=== PATIENT | female | born 1950 | race Asian ===

== ENCOUNTER 2016-06-20 07:38 | Outpatient (CLI) | payer OTHER ==
[2016-06-20] MEDS ORDERED: WARF1TAB7 PO (09:06)
[2016-06-20] MEDS ORDERED: TRAM50TA PO (12:19)
[2016-06-20] MEDS ORDERED: HYDR5TAB9 PO (12:19)
== END 2016-06-20 07:45 | disposition short-term general hospital (02) ==
LOC: AMB 07:38
DX: M25.562 Pain in left knee (principal); W18.39XA Other fall on same level, initial encounter; Y92.098 Other place in other non-institutional residence as the place of occurrence of the external cause
CPT/HCPCS: A0425; A0429

== ENCOUNTER 2016-06-20 07:45 | Emergency (ER) | payer OTHER ==
[~2016-06-20] VITALS: Ht 185.4 cm; Wt 124.7 kg
[2016-06-20 07:55] VITALS: BP 157/103; TEMP 97.9
[2016-06-20] MEDS ORDERED: WARF1TAB7 PO (09:06)
[2016-06-20] MEDS ORDERED: TRAM50TA PO (12:19)
[2016-06-20] MEDS ORDERED: HYDR5TAB9 PO (12:19)
== END 2016-06-20 12:48 | disposition home or self-care (01) ==
LOC: ED 07:45
PROC: 2W3MX1Z Immobilization of Left Lower Extremity using Splint (ICD-10-PCS; principal; 2016-06-20)
DX: M25.562 Pain in left knee (principal); S83.8X2A Sprain of other specified parts of left knee, initial encounter; M25.561 Pain in right knee; Z79.01 Long term (current) use of anticoagulants; W18.39XA Other fall on same level, initial encounter; Y92.098 Other place in other non-institutional residence as the place of occurrence of the external cause
CPT/HCPCS: 85610; 85730; 99283; J1885

== ENCOUNTER 2022-06-07 14:34 | Outpatient (CLI) | payer OTHER ==
[~2022-06-07 14:34] MED LIST: HYDR5TAB9 PO; TRAM50TA PO; WARF1TAB7 PO
[2022-06-07 15:11] LABS: POTASSIUM 3.9 mmol/L (3.6-5.2)
== END 2022-06-07 19:00 | disposition home or self-care (01) ==
LOC: LABW 14:34
PROVIDERS: ATTEND Otolaryngology
DX: Z01.812 Encounter for preprocedural laboratory examination (principal)
CPT/HCPCS: 36415; 80048